=== PATIENT | female | born 1935 | race Caucasian/White ===

== ENCOUNTER 2017-03-07 13:11 | Emergency (ER) | payer MEDICARE ==
[~2017-03-07] VITALS: Ht 167.6 cm; Wt 74.4 kg
[2017-03-07 13:19] VITALS: BP 154/63
--- NOTE | 2017-03-07 13:30 | NUR ---
81/F BIB FAMILY C/O LEFT HAND& RIGHT KNEE PAIN X 3 DAYS AGO.REQUESTING A STEROID INJECTION . DENIES N/V/D; SKIN IS PINK/WARM/DRY; AAOX4 WITH EVEN AND UNSTEADY GAIT; LUNGS CLEAR BL; HR EVEN AND REGULAR; PT DENIES ANY FEVER, CP, SOB, OR COUGH AT THIS TIME; PATIENT STATES PAIN OF 4/10 AT THIS TIME; PATIENT POSITIONED FOR COMFORT; HOB ELEVATED; BEDRAILS UP X2; BED DOWN. ER MD MADE AWARE OF PT STATUS.
[2017-03-07 13:54] VITALS: BP 143/61
--- NOTE | 2017-03-07 13:54 | NUR ---
Patient discharged with v/s stable. Written and verbal after care instructions given and explained. Patient alert, oriented and verbalized understanding of instructions. Wheel Chair Assisted with to car. All questions addressed prior to discharge. ID band removed. Patient advised to follow up with PMD. Rx of TYLENOL W/ CODEINE NO3 given. Patient educated on indication of medication including possible reaction and side effects. Opportunity to ask questions provided and answered.
== END 2017-03-07 13:54 | disposition home or self-care (01) ==
LOC: MED 13:11
DX: M17.0 Bilateral primary osteoarthritis of knee (principal); M19.042 Primary osteoarthritis, left hand; G89.29 Other chronic pain; E03.9 Hypothyroidism, unspecified